=== PATIENT | female | born 2000 | race Caucasian/White ===

== ENCOUNTER 2020-08-03 08:44 | Emergency (ER) | payer OTHER ==
[~2020-08-03 08:44] MED LIST: IBUPROFEN400 MG PO; NORCO 5-325 TA1 EACH PO
== END 2020-08-03 11:22 | disposition home or self-care (01) ==
LOC: ER1 08:44
DX: F07.81 Postconcussional syndrome (principal); T14.8XXA Other injury of unspecified body region, initial encounter; R20.0 Anesthesia of skin; M79.641 Pain in right hand; M79.642 Pain in left hand; M54.5 Low back pain; M79.605 Pain in left leg; R53.1 Weakness; F17.290 Nicotine dependence, other tobacco product, uncomplicated; V49.60XA Unspecified car occupant injured in collision with unspecified motor vehicles in traffic accident, initial encounter; Y92.410 Unspecified street and highway as the place of occurrence of the external cause
CPT/HCPCS: 84703; 96374; 99284; J1885; J7120

== ENCOUNTER 2020-10-04 02:35 | Emergency (ER) | payer OTHER ==
[2020-10-04 04:10] LABS: HEMOGLOBIN 13.2 gm/dl (12.3-15.3); RED BLOOD COUNT 4.03 M/UL (4.00-5.10)
[2020-10-04 04:37] LABS: BUN/CREATININE RATIO 22 (0-10)
== END 2020-10-04 05:18 | disposition home or self-care (01) ==
LOC: ER1 02:35
PROVIDERS: Family Medicine
DX: R55 Syncope and collapse (principal)
CPT/HCPCS: 80053; 80307; 82550; 82553; 82962; 83874; 84484; 84703; 85025; 93005; 99284

== ENCOUNTER 2021-08-13 16:52 | Emergency (ER) | payer OTHER ==
[2021-08-13 19:42] LABS: HEMOGLOBIN 12.9 gm/dl (12.3-15.3); RED BLOOD COUNT 3.87 M/UL (4.00-5.10); WHITE BLOOD COUNT 4.3 K/UL (4.5-11.0)
[2021-08-13 20:06] LABS: BUN/CREATININE RATIO 10 (0-10)
== END 2021-08-13 21:19 | disposition home or self-care (01) ==
LOC: ER1 16:52
DX: U07.1 COVID-19 (principal); F17.290 Nicotine dependence, other tobacco product, uncomplicated
CPT/HCPCS: 0240U; 71045; 80053; 85025; 85379; 87081; 87880; 99284